=== PATIENT | male | born 1980 | race Caucasian/White ===

== ENCOUNTER → 2017-01-05 | Outpatient (REF) | payer OTHER, BC | LOC: M LAB REF 11:54 | PROVIDERS: ATTEND Surgery | DX: D17.1 Benign lipomatous neoplasm of skin and subcutaneous tissue of trunk (principal) ==

== ENCOUNTER 2017-03-12 21:08 | Emergency (ER) | payer BC, OTHER ==
[2017-03-12] MEDS ORDERED: EPINEPHrine 1MG/10ML SYRINGE 1.5IN ONE (21:09)
[2017-03-12] MEDS ORDERED: EPINEPHrine 1MG/10ML SYRINGE 1.5IN IV STA ×2 (22:28→22:34)
== END 2017-03-13 04:49 | disposition expired ==
LOC: EDBD 21:08 → M ED 21:08
DX: I46.9 Cardiac arrest, cause unspecified (principal); S21.302A Unspecified open wound of left front wall of thorax with penetration into thoracic cavity, initial encounter; Y35.091A Legal intervention involving other firearm discharge, law enforcement official injured, initial encounter; Y92.89 Other specified places as the place of occurrence of the external cause; Y93.89 Activity, other specified; Y99.8 Other external cause status